=== PATIENT | female | born 1960 | race Caucasian/White ===

== ENCOUNTER 2017-09-25 14:54 | Emergency (ER) | payer OTHER ==
[~2017-09-25] VITALS: Ht 167.6 cm; Wt 72.6 kg
[2017-09-25] MEDS ORDERED: NORVASC5 MG PO (15:45)
[2017-09-25] MEDS ORDERED: COLACE100 MG PO (15:47)
[2017-09-25] MEDS ORDERED: SENNA8.6 MG PO (15:47)
[2017-09-25] MEDS ORDERED: ATIVAN0.5 MG PO (16:45)
--- NOTE | 2017-09-27 19:14 | EKG ---
[facility] [address] [facility] [place] [address] Signed Normal sinus rhythm Normal ECG No previous ECGs available Confirmed by KIMMIE BRYANT MD ([id number] on 09/27/2017 7:14:27 PM Electronically Signed By: KIMMIE BRYANT MD 09/27/17 1914 PATIENT NAME: LOUIS VALERO BRYAN Electrocardiogram DATE OF : 56 PHYSICIAN: KIMMIE BRYANT MD REPORT #: [id number] REPORT IS CONFIDENTIAL AND NOT TO BE RELEASED WITHOUT AUTHORIZATION
== END 2017-09-25 20:49 | disposition home or self-care (01) ==
LOC: ED 14:54
DX: I82.621 Acute embolism and thrombosis of deep veins of right upper extremity (principal); Z85.038 Personal history of other malignant neoplasm of large intestine; Z88.2 Allergy status to sulfonamides; Z79.899 Other long term (current) drug therapy
CPT/HCPCS: 36415; 80053; 85025; 85610; 85730; 93005; 93010; 93971; 96372; 99284; J1650